=== PATIENT | female | born 1940 | race Caucasian/White ===

== ENCOUNTER 2016-05-30 | Outpatient (CLI) | payer MEDICARE, OTHER | END 2016-05-30 22:16 | disposition critical access hospital (66) | DX: L50.9 Urticaria, unspecified (principal) | CPT/HCPCS: A0425; A0429 ==

== ENCOUNTER 2016-05-30 22:43 | Emergency (ER) | payer MEDICARE, OTHER | END 2016-05-31 00:04 | disposition home or self-care (01) | DX: L27.2 Dermatitis due to ingested food (principal); T78.1XXA Other adverse food reactions, not elsewhere classified, initial encounter ==

== ENCOUNTER 2016-12-14 22:23 | Outpatient (CLI) | payer MEDICARE, OTHER | END 2016-12-14 22:24 | disposition EMS.NT | LOC: EMS 22:23 | PROVIDERS: ATTEND Surgery | DX: R51 Headache (principal); R11.0 Nausea; R68.89 Other general symptoms and signs ==

== ENCOUNTER 2017-03-18 13:30 | Outpatient (CLI) | payer MEDICARE, OTHER ==
--- NOTE | 2017-03-18 18:50 | XRAY Report ---
THREE VIEW THORACIC SPINE: 03/18/2017 CLINICAL INDICATION: Left-sided pain. AP, lateral, swimmer's views of the thoracic spine demonstrate mild degenerative disk disease. There is no evidence of compression fracture or subluxation. No paraspinal hematoma is present. IMPRESSION: MILD DEGENERATIVE CHANGES. JOB #: [id number] EXT JOB #:[id number]
== END 2017-03-18 13:31 | disposition home or self-care (01) ==
LOC: DI.S 13:30
PROVIDERS: ATTEND Nurse Practitioner Family
DX: M51.34 Other intervertebral disc degeneration, thoracic region (principal)
CPT/HCPCS: 72070

== ENCOUNTER 2017-04-29 11:18 | Outpatient (CLI) | payer MEDICARE, OTHER | END 2017-04-29 11:19 | disposition critical access hospital (66) | LOC: EMS 11:18 | PROVIDERS: ATTEND Surgery | DX: M25.562 Pain in left knee (principal) | CPT/HCPCS: A0425; A0429 ==

== ENCOUNTER 2017-04-29 11:51 | Emergency (ER) | payer MEDICARE, OTHER ==
[2017-04-29 12:13] VITALS: BP 151/95
--- NOTE | 2017-04-29 13:03 | XRAY Preliminary Report ---
Exam: XR KNEE 3 VIEW LT IMPRESSION: 1. No apparent fracture or bony malalignment. 2. Small joint effusion. 3. 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 [facility] SITE ID: [id number]
--- NOTE | 2017-04-29 13:03 | XRAY Report ---
EXAM: LEFT KNEE RADIOGRAPHY EXAM DATE: 04/29/2017 12:49 PM. CLINICAL HISTORY: Lateral left knee pain x1 day. Pain after fall. COMPARISON: None. TECHNIQUE: 3 views. FINDINGS: Bones: No apparent fracture or bone lesion. Joints: No subluxation. Small joint effusion. Mild marginal spurring of patellofemoral and medial randell nt compartments. Mild narrowing of the medial joint compartment. Soft Tissues: Possible mild swelling. IMPRESSION: 1. No apparent fracture or bony malalignment. 2. Small joint effusion. 3. 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 [facility] Referring Provider Line: [phone] SITE ID: [id number]
--- NOTE | 2017-04-29 14:01 | ED Physician Documentation ---
PD HPI LOWER EXT INJURY - Stated complaint Stated Complaint: FALL - Chief complaint Chief Complaint: Trauma Ext - History obtained from History obtained from: Patient - History of Present Illness PD HPI LOW EXT INJURY LOCATION: Left, Knee Type of injury: Twist (she twisted her knee and felt abrupt onset of pain anterolaterally and then knee gave out, causing her to fall. Unable to bear weight. Pain with ROM of the knee, mostly trying extension. No effusion as yet.) Where injury occurred: Home Timing - onset: Today Timing - details: Abrupt onset (had had some pains with ROM and prior problems with meniscus (with subsequent removal of meniscus in the past).) Improved by: Rest Worsened by: Moving, Other (attempting weight bearing) Associated symptoms: No: Weakness, Numbness, Swelling Contributing factors: Prior ortho surgery (meniscal surgery in the past). No: Anticoagulated Similar symptoms before: Has not had sx before Recently seen: Not recently seen Review of Systems Constitutional: denies: Fever, Chills Skin: denies: Rash, Lesions Neurologic: denies: Focal weakness, Numbness PD PAST MEDICAL HISTORY - Past Medical History Cardiovascular: Other Endocrine/Autoimmune: None - Past Surgical History Past Surgical History: Yes Ortho: Knee replacement, Arthroscopic surgery, Other Cardiovascular: Vascular surgery - Present Medications Home Medications: Ambulatory Orders Medication Instructions Recorded Confirmed Loratadine/Pseudoephedrine tab PO DAILY 04/29/17 [Claritin-D 12 Hour Tablet] Tramadol HCl 50 mg PO Q6H PRN #20 tablet 04/29/17 - Allergies Allergies/Adverse Reactions: Allergies Allergy/AdvReac Type Severity Reaction Status Date / Time latex Allergy Unknown Verified 04/29/17 13:11 Sulfa (Sulfonamide Allergy Anaphylaxis Verified 04/29/17 13:11 Antibiotics) - Social History Does the pt smoke?: No Smoking Status: Never smoker Does the pt drink ETOH?: No Does the pt have substance abuse?: No - Immunizations Immunizations are current?: Yes - POLST Patient has POLST: No PD ED PE NORMAL - Vitals Vital signs reviewed: Yes - General General: Alert and oriented X 3, Well developed/nourished, Other (appears in pain with any ROM of the left knee. ) - Derm Derm: Normal color, Warm and dry, No rash - Extremities Extremities: No edema, No calf tenderness / cord, Other (left knee with tenderness anterolaterally at proximal tibia. No effusion. Pain with LCL stress but also with passive and atttempted active extension of the knee. Slightly softer feeling of patellar tendon just above the patella. ). No: Normal ROM s pain - Neuro Neuro: Alert and oriented X 3, No motor deficit, No sensory deficit, Normal speech Results - Vitals Vitals: Oxygen O2 Source Room air - Rads (name of study) left knee Radiology: Prelim report reviewed (arthritic changes; no fractures. ), EMP read contemporaneously PD MEDICAL DECISION MAKING - ED course Complexity details: reviewed results, considered differential (seems either LCL strain or more likely partial patellar tendon tear, with pain on extension, tender lateral tibial prominence. ), d/w patient Departure - Departure Disposition: 01 Home, Self Care Clinical Impression: Knee internal derangement Qualifiers: Laterality: left Qualified Code(s): M23.92 - Unspecified internal derangement of left knee Condition: Stable Record reviewed to determine appropriate education?: Yes Instructions: ED Sprain Knee Prescriptions: Tramadol HCl 50 mg PO Q6H PRN #20 tablet PRN Reason: Pain Comments: Use a knee brace to stabilize the knee and provide comfort. You can change the angle of it as desired. Use crutches as needed for weight off of the knee and leg. Use some anti-inflammatories such as ibuprofen or naproxen 2-3 times daily over the next week. Call your orthopedist later today to set up an appointment for next week to have it reassessed and see if they feel any other treatment or advanced imaging is indicated. Otherwise assumedly will be using the knee brace for 3-4 weeks if it is a ligament or partial muscle tear. Discharge Date/Time: 04/29/17 16:02
== END 2017-04-29 16:02 | disposition home or self-care (01) ==
LOC: EDUNIT# → ED 11:51
DX: M23.92 Unspecified internal derangement of left knee (principal); Z96.659 Presence of unspecified artificial knee joint
CPT/HCPCS: 99283; 99284

== ENCOUNTER 2018-01-10 16:32 | Outpatient (CLI) | payer MEDICARE, OTHER ==
[2018-01-10 17:08] LABS: BILIRUBIN,URINE NEGATIVE (NEGATIVE); GLUCOSE, URINE (UA) NEGATIVE (NEGATIVE); KETONES,URINE (UA) NEGATIVE (NEGATIVE); LEUKOCYTE ESTERASE, URINE LARGE (NEGATIVE); NITRITE,URINE NEGATIVE (NEGATIVE); OCCULT BLOOD,URINE TRACE-INTA (NEGATIVE); PROTEIN,URINE NEGATIVE (NEGATIVE); UROBILINOGEN,URINE 0.2 (NORMAL) E.U./dL (NORMAL)
[2018-01-10 17:11] LABS: CLARITY,URINE HAZY (CLEAR)
[2018-01-10 17:15] LABS: BACTERIA,URINE Few /HPF (None Seen); SQUAMOUS EPITHELIAL CELL,UR RARE Squamous (<= Few); WBC CLUMPS,URINE PRESENT
== END 2018-01-10 16:33 | disposition home or self-care (01) ==
LOC: LAB 16:32
PROVIDERS: ATTEND Internal Medicine
DX: N39.0 Urinary tract infection, site not specified (principal)
CPT/HCPCS: 81001; 81003; 87086

== ENCOUNTER 2018-09-16 12:43 | Emergency (ER) | payer MEDICARE, OTHER ==
[2018-09-16 13:00] VITALS: BP 161/83
--- NOTE | 2018-09-16 13:02 | ED Physician Documentation ---
PD HPI FEMALE - Stated complaint Stated Complaint: FEMALE - Chief complaint Chief Complaint: UTI - History obtained from History obtained from: Patient - History of Present Illness Timing - onset: Yesterday Timing - details: Abrupt onset Associated symptoms: Dysuria, Urinary frequency. No: Fever, Abdominal pain, Back pain, Hematuria Recently seen: Not recently seen - Additional information Additional information: This is a 78-year-old woman who has a history of irritable bowel syndrome and occasionally has little stool incontinence and then will develop a bladder infection. Yesterday morning or the evening before she started to get a little bit of symptoms she is having burning and urgency and a worsening of her chronic urinary incontinence she drank a lot of water yesterday and things were little bit better when she went to bed last night but they woke up this morning and they were back with a vengeance. She is not on prophylactic antibiotics. She uses Vagifem and that does seem to help Decrease her recurrences. She denies back pain, nausea or vomiting, fever. She did take 2 ibuprofen for the discomfort. Her primary care providers in [place]. Review of Systems Constitutional: denies: Fever GI: denies: Abdominal Pain, Nausea, Vomiting : reports: Dysuria, Frequency, Incontinent, Other (Urgency). denies: Hematuria Musculoskeletal: denies: Back pain PD PAST MEDICAL HISTORY - Past Medical History Cardiovascular: Other Endocrine/Autoimmune: None - Past Surgical History Past Surgical History: Yes Ortho: Knee replacement, Arthroscopic surgery, Other Cardiovascular: Vascular surgery - Present Medications Home Medications: Ambulatory Orders Medication Instructions Recorded Confirmed Cephalexin [Keflex] 500 mg PO Q6H #28 capsule 09/16/18 - Allergies Allergies/Adverse Reactions: Allergies Allergy/AdvReac Type Severity Reaction Status Date / Time crab Allergy Anaphylaxis Verified 09/16/18 13:19 latex Allergy Unknown Verified 09/16/18 13:00 nettle Allergy Anaphylaxis Verified 09/16/18 13:19 Sulfa (Sulfonamide Allergy Anaphylaxis Verified 09/16/18 13:00 Antibiotics) - Social History Does the pt smoke?: No Smoking Status: Never smoker Does the pt drink ETOH?: No Does the pt have substance abuse?: No - Immunizations Immunizations are current?: Yes - POLST Patient has POLST: No PD ED PE NORMAL - Vitals Vital signs reviewed: Yes - General General: Alert and oriented X 3, No acute distress, Well developed/nourished - HEENT HEENT: Atraumatic - Cardiac Cardiac: RRR, No murmur - Respiratory Respiratory: No respiratory distress - Abdomen Abdomen: Normal bowel sounds, Soft - Back Back: No CVA TTP - Derm Derm: Normal color, Warm and dry - Neuro Neuro: Alert and oriented X 3 Results - Vitals Vitals: Vital Signs - 24 hr 09/16/18 12:58 Temperature 36.0 C L Heart Rate 79 Respiratory 14 Rate Blood Pressure 161/83 H O2 Saturation 96 Oxygen O2 Source Room air - Labs Labs: Laboratory Tests 09/16/18 12:05 Urine Color LIGHT YELLOW Urine Clarity HAZY Urine pH 5.5 Ur Specific Jacob 1.010 Urine Protein NEGATIVE Urine Glucose (UA) NEGATIVE Urine Ketones NEGATIVE Urine Occult Blood SMALL H Urine Nitrite NEGATIVE Urine Bilirubin NEGATIVE Urine Urobilinogen 0.2 (NORMAL) Ur Leukocyte Esterase MODERATE H Urine RBC 0-5 Urine WBC >25 H Ur Squamous Epith Cells FEW Squamous Urine Bacteria Few Ur Microscopic Review INDICATED Urine Culture Comments INDICATED PD MEDICAL DECISION MAKING - ED course Complexity details: reviewed results, d/w patient ED course: Patient does have a urinary tract infection with greater than 25 white blood cells per high-power field. Culture has been obtained. Patient says her typical infection is E. coli and response to Keflex so she will be placed on Keflex. We discussed using probiotics while she is on the antibiotic and for at least 2 weeks after. Follow with the primary care provider to retest the urine after finishing the antibiotics to make sure that the infection has been eradicated. Departure - Departure Disposition: 01 Home, Self Care Clinical Impression: Urinary tract infection Qualifiers: Urinary tract infection type: site unspecified Hematuria presence: without hematuria Qualified Code(s): N39.0 - Urinary tract infection, site not specified Condition: Good Instructions: ED UTI Cystitis Female Follow-Up: Zonia Roy MD [Primary Care Provider] - (after finish antibiotic to recheck urine) Prescriptions: Cephalexin [Keflex] 500 mg PO Q6H #28 capsule Comments: Take the Keflex 4 times a day as prescribed. Make sure that you are drinking lots of water. I would take probiotics while you are on the antibiotic and for at least 2 weeks afterwards. Some good sources would include, Blucher or water Miguel [place] since you are allergic to dairy. In addition recommendations for probiotic capsules: [facility] [employer] [facility] [employer]. B. infantis is a good strain of bacteria to look for in a probiotic. If unable to find these, then a probiotic capsule that has 4 or 5 different strains and it would be preferred.Follow-up with your primary care provider to have the urine retested after finishing the antibiotic to make sure the infection has been eradicated. If you are not seeing improvement in 48 hours he should recheck or return if you have increasing symptoms, back pain, fever or vomiting and cannot keep anything down.
[2018-09-16 13:16] LABS: BILIRUBIN,URINE NEGATIVE (NEGATIVE); CLARITY,URINE HAZY (CLEAR); GLUCOSE, URINE (UA) NEGATIVE (NEGATIVE); KETONES,URINE (UA) NEGATIVE (NEGATIVE); LEUKOCYTE ESTERASE, URINE MODERATE (NEGATIVE); NITRITE,URINE NEGATIVE (NEGATIVE); OCCULT BLOOD,URINE SMALL (NEGATIVE); PH,URINE 5.5 PH (5.0-7.5); PROTEIN,URINE NEGATIVE (NEGATIVE); UROBILINOGEN,URINE 0.2 (NORMAL) E.U./dL (NORMAL)
[2018-09-16 13:24] LABS: BACTERIA,URINE Few /HPF (None Seen); RBC,URINE 0-5 /HPF (0-5); SQUAMOUS EPITHELIAL CELL,UR FEW Squamous (<= Few)
== END 2018-09-16 13:54 | disposition home or self-care (01) ==
LOC: ED 12:43
DX: N39.0 Urinary tract infection, site not specified (principal); K58.9 Irritable bowel syndrome, unspecified; R15.9 Full incontinence of feces; R32 Unspecified urinary incontinence; Z96.659 Presence of unspecified artificial knee joint
CPT/HCPCS: 81001; 81003; 87086; 99283

== ENCOUNTER 2019-01-02 15:33 | Outpatient (CLI) | payer MEDICARE, OTHER ==
--- NOTE | 2019-01-02 20:00 | Ultrasound Report ---
Reason: PAIN IN LEFT LOWER LIMB Procedure Date: 01/02/2019 Accession Number: [id number] / [id number] Procedure: US - Duplex Ext Veins Left CPT Code: FULL RESULT: EXAM: LEFT LOWER EXTREMITY VENOUS ULTRASOUND. EXAM DATE: 01/02/2019 04:20 PM. CLINICAL HISTORY: Pain in left lower limb. COMPARISON: None. TECHNIQUE: Real-time sonographic vascular imaging was performed by the internet application developer through the lower extremity utilizing both color-flow and Doppler spectral analysis. Multiple labor representative static images were saved for review. FINDINGS: Common Femoral Vein (CFV): Normal. CFV-GSV Junction: Normal. Profunda Femoral Vein (PFV): Normal. Femoral Vein (FV) Prox: Normal. Femoral Vein (FV) Mid: Normal. Femoral Vein (FV) Dist: Normal. Popliteal Vein: Normal. Posterior Tibial Veins: Normal. Peroneal Veins: Normal. Contralateral Side CFV: Normal. Other: None. IMPRESSION: No evidence for deep venous thrombosis. [facility]
== END 2019-01-02 15:34 | disposition home or self-care (01) ==
LOC: DI 15:33
PROVIDERS: ATTEND Nurse Practitioner Family
DX: M79.605 Pain in left leg (principal)

== ENCOUNTER 2019-01-30 15:15 | Outpatient (CLI) | payer MEDICARE, OTHER ==
--- NOTE | 2019-01-30 15:52 | XRAY Report ---
Reason: JAW PAIN Procedure Date: 01/30/2019 Accession Number: [id number] / [id number] Procedure: XR - Mandible Bilat CPT Code: FULL RESULT: EXAM: MANDIBLE RADIOGRAPHY EXAM DATE: 01/30/2019 03:40 PM. HISTORY: Jaw pain. COMPARISONS: None. TECHNIQUE: 4 views. FINDINGS: Bones: The bones are qualitatively osteopenic; this limits evaluation for underlying fractures or masses. No definite fracture is identified in this setting. Temporomandibular Joints: Normal. The temporomandibular joints are normally located and symmetric. Sinuses: Normal. No opacities or fluid levels. Other: Degenerative changes of the cervical spine are noted. IMPRESSION: Osteopenia with no definite fracture identified. [facility]
== END 2019-01-30 15:16 | disposition home or self-care (01) ==
LOC: DI 15:15
PROVIDERS: ATTEND Nurse Practitioner Family
DX: M85.88 Other specified disorders of bone density and structure, other site (principal); R68.84 Jaw pain
CPT/HCPCS: 70110

== ENCOUNTER 2019-03-25 01:40 | Outpatient (CLI) | payer MEDICARE, OTHER | END 2019-03-25 01:41 | disposition critical access hospital (66) | LOC: EMS 01:40 | PROVIDERS: ATTEND Surgery | DX: R10.9 Unspecified abdominal pain (principal) | CPT/HCPCS: A0425; A0429 ==

== ENCOUNTER 2019-03-25 02:11 | Emergency (ER) | payer MEDICARE, OTHER ==
[2019-03-25 02:32] LABS: BASOPHILS % (AUTO) 0.2 %; EOSINOPHILS # (AUTO) 0.1 10^3/uL (0.0-0.7); EOSINOPHILS % (AUTO) 2.3 %; HGB - HEMOGLOBIN 14.9 g/dL (12.0-16.0); LYMPHOCYTES # (AUTO) 0.5 10^3/uL (1.5-3.5); LYMPHOCYTES % (AUTO) 9.5 %; MEAN CORPUSCULAR HEMOGLOBIN 28.8 pg (27.0-31.0); MEAN CORPUSCULAR HGB CONC 33.4 g/dL (32.0-36.0); MEAN CORPUSCULAR VOLUME 86.3 fL (81.0-99.0); MONOCYTES # (AUTO) 0.6 10^3/uL (0.0-1.0); MONOCYTES % (AUTO) 10.6 %; NEUTROPHILS # (AUTO) 4.3 10^3/uL (1.5-6.6); PLT - PLATELET COUNT 170 10^3/uL (130-450); RED BLOOD COUNT 5.17 10^6/uL (4.20-5.40); RED CELL DISTRIBUTION WIDTH 13.2 % (12.0-15.0); WHITE BLOOD COUNT 5.6 x10^3/uL (4.8-10.8)
[2019-03-25 02:47] LABS: ALBUMIN 4.3 g/dL (3.2-5.5); ALBUMIN/GLOBULIN RATIO 1.3 (1.0-2.2); BILIRUBIN,TOTAL 3.2 mg/dL (0.2-1.0); CALCIUM 9.5 mg/dL (8.5-10.3); CREATININE 0.8 mg/dL (0.4-1.0); TOTAL PROTEIN 7.5 g/dL (6.7-8.2)
--- NOTE | 2019-03-25 03:44 | ED Physician Documentation ---
PD HPI ABD PAIN - Stated complaint Stated Complaint: ABD PAIN - Chief complaint Chief Complaint: Abd Pain - History obtained from History obtained from: Patient - History of Present Illness Timing - onset: Yesterday Timing - details: Abrupt onset, Intermittant, Waxing and waning Quality: Pain Location: Epigastric Radiation: Other (no radiation) Improved by: Other (no ameliorating factors) Worsened by: Eating Associated symptoms: Nausea. No: Fever, Vomiting, Diarrhea, Constipation Similar symptoms before: Has not had sx before Recently seen: Not recently seen Review of Systems Constitutional: reports: Reviewed and negative Eyes: reports: Reviewed and negative Ears: reports: Reviewed and negative Nose: reports: Reviewed and negative Throat: reports: Reviewed and negative Cardiac: reports: Reviewed and negative Respiratory: reports: Reviewed and negative GI: reports: Abdominal Pain, Nausea. denies: Vomiting, Constipation, Diarrhea : denies: Dysuria, Frequency Skin: reports: Reviewed and negative Musculoskeletal: reports: Reviewed and negative Neurologic: reports: Reviewed and negative PD PAST MEDICAL HISTORY - Past Medical History Past Medical History: No Cardiovascular: Other Endocrine/Autoimmune: None GI: Other Other Past Medical History: hx IBS - Past Surgical History Past Surgical History: Yes Ortho: Knee replacement, Arthroscopic surgery, Other Cardiovascular: Vascular surgery - Present Medications Home Medications: Ambulatory Orders Medication Instructions Recorded Confirmed No Known Home Medications 03/25/19 03/25/19 - Allergies Allergies/Adverse Reactions: Allergies Allergy/AdvReac Type Severity Reaction Status Date / Time crab Allergy Anaphylaxis Verified 09/16/18 13:19 latex Allergy Unknown Verified 09/16/18 13:00 nettle Allergy Anaphylaxis Verified 09/16/18 13:19 Sulfa (Sulfonamide Allergy Anaphylaxis Verified 09/16/18 13:00 Antibiotics) - Social History Does the pt smoke?: No Smoking Status: Never smoker Does the pt drink ETOH?: No Does the pt have substance abuse?: No - Immunizations Immunizations are current?: Yes - POLST Patient has POLST: No PD ED PE NORMAL - Vitals Vital signs reviewed: Yes - General General: Alert and oriented X 3, Well developed/nourished, Other (mild/moderate painful distress at times during H+P) - HEENT HEENT: Moist mucous membranes - Neck Neck: Supple, no meningeal sign - Cardiac Cardiac: RRR, No murmur - Respiratory Respiratory: No respiratory distress, Clear bilaterally - Abdomen Abdomen: Soft, Non distended, Other (TTP RUQ and epigastrium without rebound or guarding) - Back Back: No CVA TTP - Derm Derm: Normal color, Warm and dry, No rash - Extremities Extremities: No edema Results - Vitals Vitals: Vital Signs - 24 hr 03/25/19 03/25/19 03/25/19 02:14 02:19 04:19 Temperature 37.2 C Heart Rate 67 68 72 Respiratory 18 12 Rate Blood Pressure 149/85 H 133/82 H O2 Saturation 100 100 97 03/25/19 03/25/19 06:03 08:39 Temperature 37.4 C Heart Rate 66 56 L Respiratory 16 18 Rate Blood Pressure 141/88 H 121/77 O2 Saturation 99 97 Oxygen O2 Source Room air - EKG (time done) No standard instances Rate: Rate (enter#) (71) Rhythm: NSR [place]: Normal Intervals: Normal [place] QRS: Normal Ischemia: Normal ST segments, Q waves (V1, V2) - Labs Labs: Laboratory Tests 03/25/19 03/25/19 02:25 02:25 WBC 5.6 RBC 5.17 Hgb 14.9 Hct 44.6 MCV 86.3 MCH 28.8 MCHC 33.4 RDW 13.2 Plt Count 170 MPV 11.0 H Neut # (Auto) 4.3 Lymph # (Auto) 0.5 L Stokes # (Auto) 0.6 Eos # (Auto) 0.1 Baso # (Auto) 0.0 Absolute Nucleated RBC 0.00 Nucleated RBC % 0.0 Sodium 139 Potassium 3.4 L Chloride 101 Carbon Dioxide 25 Anion Gap 13.0 BUN 13 Creatinine 0.8 Estimated GFR (MDRD) 70 L Glucose 161 H Calcium 9.5 Total Bilirubin 3.2 H AST 716 H ALT 559 H Alkaline Phosphatase 123 H Total Protein 7.5 Albumin 4.3 Globulin 3.2 Albumin/Globulin Ratio 1.3 Lipase 29 - Rads (name of study) CT A/P Radiology: Prelim report reviewed, See rad report RUQ US Radiology: Prelim report reviewed, See rad report PD MEDICAL DECISION MAKING - ED course Complexity details: reviewed results, re-evaluated patient, considered differential, d/w patient ED course: patient reported improvement in symptoms after IV zofran and morphine. After blood tests and CT resulted, I contacted Dr. Alexandre (surgery reservations manager at [facility]). He recommends transfer to facility capable of performing ERCP. US results pending at that time. [facility], [facility], [facility]. were contacted and no beds available at these facilities. [facility] beds available. I discussed the case with Dr. Purvis who accepts transfer. US subsequently completed and findings are concerning for cholecystitis as well as distal choledocholithiasis Departure - Departure Disposition: 02 Transfer Acute Care Hosp Clinical Impression: Abnormal liver function tests, Gallstones, Choledocholithiasis with acute chol ecystitis Condition: Stable
[2019-03-25] MEDS ORDERED: ONDANSETRON 4 MG/2 ML VIAL IVP STA (04:04)
[2019-03-25] MEDS ORDERED: MORPHINE 2 MG/ML CARPUJECT IVP STA ×2 (04:04→09:33)
[2019-03-25] MEDS ORDERED: SODIUM CHLORIDE 0.9% 1,000 ML IV STA ×2 (04:04→08:40)
[2019-03-25] MEDS ORDERED: diphenhydrAMINE INJ 50 MG/ML VIAL IVP STA (04:30)
[2019-03-25] MEDS ORDERED: IOVERSOL 320 100 ML VIAL IVP ONE ×2 (04:31→05:08)
--- NOTE | 2019-03-25 05:21 | CT Report ---
Reason: abd. pain, abnl. LFTs Procedure Date: 03/25/2019 Accession Number: [id number] / [id number] Procedure: CT - Abdomen/Pelvis W CPT Code: Final Report FULL RESULT: EXAM: CT ABDOMEN AND PELVIS EXAM DATE: 03/25/2019 05:05 AM. CLINICAL HISTORY: Abdominal pain. Abnormal LFTs. COMPARISONS: None. TECHNIQUE: Routine helical CT imaging was performed through the abdomen and pelvis. IV contrast: 80 ML OPTIRAY 320. Enteric contrast: No. Reconstructions: Coronal and sagittal. In accordance with CT protocol optimization, one or more of the following dose reduction techniques were utilized for this exam: automated exposure control, adjustment of mA and/or KV based on patient size, or use of iterative reconstructive technique. FINDINGS: Lung Bases: Unremarkable. Liver: Liver is mild enlarged with right hepatic lobe measuring 20.6 cm in craniocaudal dimension. Hypodense liver compatible with fatty infiltration with focal fatty sparing adjacent to gallbladder fossa. Gallbladder/Bile Ducts: Minimal gallbladder wall thickening, irregularity and enhancement. No evidence of gallstones. Mild dilation of CBD measuring up to 9 mm. Spleen: Normal. Pancreas: Normal. Adrenal Glands: Normal. Kidneys: Normal. No masses or hydronephrosis. Peritoneal Cavity/Bowel: Duodenal diverticula noted. Underdistention of transverse colon to rectum with prominence of wall. Colonic diverticula without focal inflammation to suggest acute diverticulitis. No bowel obstruction. The appendix is well visualized and normal. No free fluid, free air or lymphadenopathy. Pelvic Organs: Normal. The bladder and visualized pelvic organs are within normal limits. Vasculature: No aneurysms or other significant abnormality. Bones: No significant abnormality. Other: None. IMPRESSION: 1. Minimal gallbladder wall thickening/irregularity and biliary dilation. No radiopaque calculi evident. Recommend right upper quadrant ultrasound to further assess. 2. Mildly enlarged fatty liver with areas of fatty sparing adjacent to gallbladder. 3. Colonic diverticula without acute diverticulitis. 4. Mild prominence of colonic wall from transverse colon to rectum which may be related to underdistention or mild colitis. Correlate clinically. [facility]
[2019-03-25 08:41] VITALS: BP 121/77
--- NOTE | 2019-03-25 08:50 | Ultrasound Report ---
Reason: abd. pain, abnormal LFTs Procedure Date: 03/25/2019 Accession Number: [id number] / [id number] Procedure: US - Abdomen Limited CPT Code: Addended Final Report FULL RESULT: EXAM: ABDOMEN ULTRASOUND LIMITED, RUQ EXAM DATE: 03/25/2019 08:00 AM. CLINICAL HISTORY: Abdominal pain, elevated LFTs. COMPARISON: CT of the abdomen and pelvis from 03/25/2019. TECHNIQUE: Real-time scanning was performed with static images obtained. FINDINGS: Liver: Diffusely increased in echogenicity. Right hepatic lobe measures 20.1 cm longitudinally, which is enlarged. No focal lesions are demonstrated. Main portal vein flow: Hepatopetal. Gallbladder: Multiple gallstones and sludge are demonstrated. Gallbladder wall is moderately thickened at 5 mm. Small amount pericholecystic fluid present. Could not assess for sonographic Byrd sign as the patient is reportedly on pain medication. Biliary System: CBD measures 9 mm. No intrahepatic biliary ductal dilation is demonstrated. However, on left lateral decubitus image, there appeared to be echogenic foci in the distal common bile duct, measuring up to 4 mm (images [id number]). This is suspicious for choledocholithiasis. Other: None. IMPRESSION: 1. Cholelithiasis and gallbladder sludge with moderately thickened gallbladder wall and small amount of pericholecystic fluid. Could not assess for sonographic Byrd sign as the patient is reportedly on pain medication. However, findings raise suspicion for acute cholecystitis. If clinically indicated, HIDA scan could be considered for confirmation. 2. Dilation of the common bile duct with findings suspicious for distal choledocholithiasis. 3. Mildly enlarged and echogenic liver, compatible with hepatic steatosis seen on previous CT. IDA The call report notification system was initiated by Dr. Sunil Guerrero at 08:43 AM on 03/25/2019. ADDENDUM: 03/25/19 08:48 The above call report findings were discussed with Dr. Max Sanders by Dr. Sunil Guerrero at 08:48 AM on 03/25/2019.
[2019-03-27 11:46] LABS: HEPATITIS A IGM NON-REACTIVE (NON-REACTIVE); HEPATITIS B SURFACE ANTIGEN NON-REACTIVE (NON-REACTIVE); HEPATITIS C ANTIBODY NON-REACTIVE (NON-REACTIVE)
== END 2019-03-25 09:45 | disposition short-term general hospital (02) ==
LOC: EDUNIT# → ED 02:11
DX: K80.62 Calculus of gallbladder and bile duct with acute cholecystitis without obstruction (principal); R74.8 Abnormal levels of other serum enzymes
CPT/HCPCS: 36415; 74177; 76705; 80053; 80074; 83690; 85025; 86705; 86709; 86803; 87340; 93005; 96361; 96374; 96375; 96376; 99284; J1200; Q9967

== ENCOUNTER 2019-03-25 09:47 | Outpatient (CLI) | payer MEDICARE, OTHER | END 2019-03-25 09:48 | disposition short-term general hospital (02) | LOC: EMS 09:47 | PROVIDERS: ATTEND Surgery | DX: R10.9 Unspecified abdominal pain (principal); K80.20 Calculus of gallbladder without cholecystitis without obstruction; R94.5 Abnormal results of liver function studies | CPT/HCPCS: A0425; A0426 ==

== ENCOUNTER 2019-04-05 13:23 | Outpatient (CLI) | payer MEDICARE, OTHER ==
[2019-04-05 13:42] LABS: BASOPHILS % (AUTO) 0.4 %; EOSINOPHILS # (AUTO) 0.1 10^3/uL (0.0-0.7); EOSINOPHILS % (AUTO) 1.4 %; HGB - HEMOGLOBIN 14.1 g/dL (12.0-16.0); LYMPHOCYTES # (AUTO) 1.5 10^3/uL (1.5-3.5); LYMPHOCYTES % (AUTO) 21.2 %; MEAN CORPUSCULAR HEMOGLOBIN 29.3 pg (27.0-31.0); MEAN CORPUSCULAR HGB CONC 32.5 g/dL (32.0-36.0); MEAN CORPUSCULAR VOLUME 90.2 fL (81.0-99.0); MEAN PLATELET VOLUME 9.3 fL (7.9-10.8); MONOCYTES # (AUTO) 0.8 10^3/uL (0.0-1.0); NEUTROPHILS # (AUTO) 4.6 10^3/uL (1.5-6.6); NEUTROPHILS % (AUTO) 64.7 %; PLT - PLATELET COUNT 343 10^3/uL (130-450); RED BLOOD COUNT 4.81 10^6/uL (4.20-5.40); RED CELL DISTRIBUTION WIDTH 13.4 % (12.0-15.0); WHITE BLOOD COUNT 7.1 x10^3/uL (4.8-10.8)
[2019-04-05 13:59] LABS: ALBUMIN 3.7 g/dL (3.2-5.5); ALBUMIN/GLOBULIN RATIO 0.9 (1.0-2.2); BILIRUBIN,TOTAL 0.5 mg/dL (0.2-1.0); CALCIUM 9.2 mg/dL (8.5-10.3); CREATININE 0.8 mg/dL (0.4-1.0); TOTAL PROTEIN 7.7 g/dL (6.7-8.2)
== END 2019-04-05 13:24 | disposition home or self-care (01) ==
LOC: LAB 13:23
PROVIDERS: ATTEND Internal Medicine
DX: K80.21 Calculus of gallbladder without cholecystitis with obstruction (principal)
CPT/HCPCS: 36415; 80053; 85025

== ENCOUNTER 2020-02-27 16:23 | Outpatient (CLI) | payer MEDICARE, OTHER ==
[2020-02-27 16:57] LABS: BILIRUBIN,URINE NEGATIVE (NEGATIVE); GLUCOSE, URINE (UA) NEGATIVE (NEGATIVE); KETONES,URINE (UA) NEGATIVE (NEGATIVE); LEUKOCYTE ESTERASE, URINE SMALL (NEGATIVE); NITRITE,URINE NEGATIVE (NEGATIVE); OCCULT BLOOD,URINE NEGATIVE (NEGATIVE); PH,URINE 5.5 PH (5.0-7.5); PROTEIN,URINE NEGATIVE (NEGATIVE); UROBILINOGEN,URINE 0.2 (NORMAL) E.U./dL (NORMAL)
[2020-02-27 17:19] LABS: CLARITY,URINE CLEAR (CLEAR); RBC,URINE 0-5 /HPF (0-5); SQUAMOUS EPITHELIAL CELL,UR FEW Squamous (<= Few); WBC CLUMPS,URINE PRESENT
[2020-02-27 17:20] LABS: BACTERIA,URINE Few /HPF (None Seen)
== END 2020-02-27 16:24 | disposition home or self-care (01) ==
LOC: LAB 16:23
PROVIDERS: ATTEND Internal Medicine
DX: R30.0 Dysuria (principal)
CPT/HCPCS: 81001; 87077; 87086; 87181

== ENCOUNTER 2020-07-04 17:03 | Outpatient (CLI) | payer MEDICARE, OTHER ==
[2020-07-04 17:25] LABS: BILIRUBIN,URINE NEGATIVE (NEGATIVE); GLUCOSE, URINE (UA) NEGATIVE (NEGATIVE); KETONES,URINE (UA) NEGATIVE (NEGATIVE); LEUKOCYTE ESTERASE, URINE SMALL (NEGATIVE); NITRITE,URINE NEGATIVE (NEGATIVE); OCCULT BLOOD,URINE NEGATIVE (NEGATIVE); PH,URINE 5.5 PH (5.0-7.5); PROTEIN,URINE NEGATIVE (NEGATIVE); UROBILINOGEN,URINE 0.2 (NORMAL) E.U./dL (NORMAL)
[2020-07-04 17:31] LABS: BACTERIA,URINE Rare /HPF (None Seen); CLARITY,URINE SL. CLOUDY (CLEAR); RBC,URINE 0-5 /HPF (0-5); SQUAMOUS EPITHELIAL CELL,UR RARE Squamous (<= Few); WBC,URINE >25 /HPF (0-5)
== END 2020-07-04 17:04 | disposition home or self-care (01) ==
LOC: LAB 17:03
PROVIDERS: ATTEND Internal Medicine
DX: R30.0 Dysuria (principal)
CPT/HCPCS: 81001; 87086

== ENCOUNTER 2020-08-21 08:50 | Day surgery (SDC) | payer MEDICARE, OTHER ==
[2020-08-21] MEDS ORDERED: LACTATED RINGERS 1,000 ML IV ONE ×2 (09:05→11:39)
[2020-08-21] MEDS ORDERED: MIDAZOLAM 2 MG/2 ML VIAL ONE (11:11)
[2020-08-21] MEDS ORDERED: fentaNYL 250 MCG/5 ML VIAL ONE (11:11)
[2020-08-21] MEDS ORDERED: LIDOCAINE OINTMENT 5% 35.44 GM TUBE ONE (11:26)
[2020-08-21] MEDS ORDERED: LIDOCAINE OINTMENT 5% 35.44 GM TUBE TOP ONE (11:34)
[2020-08-21 12:03] VITALS: BP 107/83
== END 2020-08-21 08:51 | disposition home or self-care (01) ==
LOC: SDS 08:50
PROVIDERS: ATTEND Surgery
DX: Z12.11 Encounter for screening for malignant neoplasm of colon (principal); K57.30 Diverticulosis of large intestine without perforation or abscess without bleeding; K64.8 Other hemorrhoids; K64.4 Residual hemorrhoidal skin tags; Z86.010 Personal history of colon polyps; K58.2 Mixed irritable bowel syndrome
CPT/HCPCS: A9270; G0105; J3010; J7120

== ENCOUNTER 2020-09-08 16:21 | Outpatient (CLI) | payer MEDICARE, OTHER ==
--- NOTE | 2020-09-08 17:01 | XRAY Report ---
PROCEDURE: Hip w/Pelvis 2-3V LT INDICATIONS: L HIP PAIN TECHNIQUE: AP pelvis with lateral view(s) of the bilateral hip(s). COMPARISON: None. FINDINGS: Bones: No fractures or dislocations. Pelvic ring appears intact. No suspicious bony lesions. Moder ate joint space narrowing and articular osteophyte formation at the bilateral hip joints. Soft tissues: The visualized bowel gas pattern is normal. No suspicious soft tissue calcifications. IMPRESSION: Bilateral hip osteoarthritis. No acute fracture. No osseous lesion. If symptoms and/or c linical suspicion for pathology continue, further assessment with repeat plain films, or advanced yusra ging (e.g., CT, MRI, or bone scan) is recommended for further assessment. Reviewed by: Rere Livingston MD on 09/08/2020 5:00 PM PDT Approved by: Rere Livingston MD on 09/08/2020 5:00 PM PDT Station ID: [id number]
--- NOTE | 2020-09-08 19:21 | XRAY Report ---
PROCEDURE: Lumbar Spine 2 View INDICATIONS: LBP TECHNIQUE: 2 views of the lumbar spine were acquired. COMPARISON: None. FINDINGS: Bones: 5 [id number] vertebrae are present. There is normal bony alignment. No vertebral body compression fractures. No suspicious bony lesions. Mild convex left thoracolumbar scoliosis present . Moderate disc space narrowing and hypertrophic facet joints noted at L4-5 and L5-S1. Surgical clips noted in the right upper quadrant. Moderate fecal debris present throughout the colon. No obstruction. IMPRESSION: Lower lumbar spine degenerative disc disease and arthropathy associated with thoracolumbar dextroscol iosis Moderate fecal debris throughout the colon Reviewed by: Abhi Spaulding MD on 09/08/2020 6:20 PM VALERY Approved by: Abhi Spaulding MD on 09/08/2020 6:20 PM VALERY Station ID: [id number]
== END 2020-09-08 16:22 | disposition home or self-care (01) ==
LOC: LAB 16:21
PROVIDERS: ATTEND Nurse Practitioner
DX: R15.2 Fecal urgency (principal); R10.9 Unspecified abdominal pain; R19.7 Diarrhea, unspecified; M47.816 Spondylosis without myelopathy or radiculopathy, lumbar region; M51.36 Other intervertebral disc degeneration, lumbar region; M48.061 Spinal stenosis, lumbar region without neurogenic claudication; M16.0 Bilateral primary osteoarthritis of hip
CPT/HCPCS: 81599; 87045; 87046; 87427

== ENCOUNTER 2020-09-16 15:55 | Outpatient (CLI) | payer MEDICARE, OTHER | END 2020-09-16 15:56 | disposition home or self-care (01) | LOC: RT 15:55 | DX: Z01.810 Encounter for preprocedural cardiovascular examination (principal); M19.071 Primary osteoarthritis, right ankle and foot; M21.621 Bunionette of right foot | CPT/HCPCS: 93005 ==

== ENCOUNTER 2020-11-26 16:40 | Outpatient (CLI) | payer MEDICARE, OTHER ==
[2020-11-26 16:54] LABS: BILIRUBIN,URINE NEGATIVE (NEGATIVE); GLUCOSE, URINE (UA) NEGATIVE (NEGATIVE); KETONES,URINE (UA) NEGATIVE (NEGATIVE); LEUKOCYTE ESTERASE, URINE MODERATE (NEGATIVE); NITRITE,URINE NEGATIVE (NEGATIVE); OCCULT BLOOD,URINE TRACE-LYSE (NEGATIVE); PH,URINE 5.5 PH (5.0-7.5); PROTEIN,URINE NEGATIVE (NEGATIVE); UROBILINOGEN,URINE 0.2 (NORMAL) E.U./dL (NORMAL)
[2020-11-26 16:56] LABS: CLARITY,URINE SL. CLOUDY (CLEAR)
[2020-11-26 17:00] LABS: BACTERIA,URINE Few /HPF (None Seen); MUCUS,URINE Few Strands; RBC,URINE 0-5 /HPF (0-5); SQUAMOUS EPITHELIAL CELL,UR FEW Squamous (<= Few); WBC,URINE >25 /HPF (0-5)
== END 2020-11-26 16:41 | disposition home or self-care (01) ==
LOC: LAB 16:40
PROVIDERS: ATTEND Internal Medicine
DX: R30.0 Dysuria (principal)
CPT/HCPCS: 81001; 87077; 87086; 87181

== ENCOUNTER 2021-09-09 08:00 | Outpatient (CLI) | payer MEDICARE, OTHER ==
[2021-09-09 20:15] LABS: BILIRUBIN,URINE NEGATIVE (NEGATIVE); GLUCOSE, URINE (UA) NEGATIVE (NEGATIVE); KETONES,URINE (UA) NEGATIVE (NEGATIVE); LEUKOCYTE ESTERASE, URINE SMALL (NEGATIVE); NITRITE,URINE NEGATIVE (NEGATIVE); OCCULT BLOOD,URINE NEGATIVE (NEGATIVE); PROTEIN,URINE NEGATIVE (NEGATIVE); UROBILINOGEN,URINE 0.2 (NORMAL) E.U./dL (NORMAL)
[2021-09-09 20:18] LABS: CLARITY,URINE CLEAR (CLEAR)
[2021-09-09 20:30] LABS: BACTERIA,URINE Few /HPF (None Seen); RBC,URINE 0-5 /HPF (0-5); SQUAMOUS EPITHELIAL CELL,UR FEW Squamous (<= Few)
== END 2021-09-09 23:59 | disposition home or self-care (01) ==
LOC: LAB.S 08:00
PROVIDERS: ATTEND Physician Assistant Medical
DX: N39.0 Urinary tract infection, site not specified (principal)
CPT/HCPCS: 81001; 87086; 87181

== ENCOUNTER 2022-02-13 08:00 | Outpatient (CLI) | payer MEDICARE, OTHER | END 2022-02-13 23:59 | disposition home or self-care (01) | LOC: LAB.S 08:00 | PROVIDERS: ATTEND Physician Assistant Medical | DX: R39.15 Urgency of urination (principal); R30.0 Dysuria | CPT/HCPCS: 87086 ==

== ENCOUNTER 2022-02-24 08:00 | Outpatient (CLI) | payer MEDICARE, OTHER ==
[2022-02-24 20:00] LABS: BILIRUBIN,URINE NEGATIVE (NEGATIVE); GLUCOSE, URINE (UA) NEGATIVE (NEGATIVE); KETONES,URINE (UA) NEGATIVE (NEGATIVE); LEUKOCYTE ESTERASE, URINE SMALL (NEGATIVE); NITRITE,URINE NEGATIVE (NEGATIVE); OCCULT BLOOD,URINE NEGATIVE (NEGATIVE); PROTEIN,URINE NEGATIVE (NEGATIVE); UROBILINOGEN,URINE 0.2 (NORMAL) E.U./dL (NORMAL)
[2022-02-24 20:01] LABS: CLARITY,URINE CLEAR (CLEAR)
[2022-02-24 20:16] LABS: RBC,URINE 0-5 /HPF (0-5); SQUAMOUS EPITHELIAL CELL,UR FEW Squamous (<= Few)
[2022-02-24 20:17] LABS: BACTERIA,URINE Rare /HPF (None Seen); EPITHELIAL CELLS,UR FEW Transitional /HPF (<= Few)
== END 2022-02-24 23:59 | disposition home or self-care (01) ==
LOC: LAB.S 08:00
PROVIDERS: ATTEND Internal Medicine
DX: R30.0 Dysuria (principal)
CPT/HCPCS: 81001; 87086

== ENCOUNTER 2022-03-29 15:00 | Emergency (ER) | payer MEDICARE, OTHER ==
[2022-03-29 15:32] VITALS: BP 132/75
--- NOTE | 2022-03-29 16:41 | XRAY Report ---
PROCEDURE: Hip w/Pelvis 2-3V RT INDICATIONS: fall, pain TECHNIQUE: AP pelvis with lateral view(s) of the right hip(s). COMPARISON: None. FINDINGS: Bones: Moderate bilateral hip joint osteoarthritic changes are seen. No evidence of avascular necros is of femoral head. No fractures or dislocations. Pelvic ring appears intact. No suspicious bony le sions. Soft tissues: The visualized bowel gas pattern is normal. No suspicious soft tissue calcifications. IMPRESSION: Moderate bilateral hip joint osteoarthritis. No acute pelvic or hip fracture. No evidence of avascular necrosis. Reviewed by: Leif Herring MD on 03/29/2022 4:39 PM PST Approved by: Leif Herring MD on 03/29/2022 4:39 PM PST Station ID: [id number]
== END 2022-03-29 17:58 | disposition left against medical advice (07) ==
LOC: ED 15:00
DX: M79.651 Pain in right thigh (principal); Z53.21 Procedure and treatment not carried out due to patient leaving prior to being seen by health care provider

== ENCOUNTER 2022-06-05 15:49 | Emergency (ER) | payer MEDICARE, OTHER ==
[2022-06-05] MEDS ORDERED: DEXAMETHASONE 10 MG/ML VIAL IM STA (16:31)
--- NOTE | 2022-06-05 16:36 | ED Physician Documentation ---
PD HPI BACK PAIN - Stated complaint Stated Complaint: BACK PX - Chief complaint Chief Complaint: Back Pain - History obtained from History obtained from: Patient - Additional information Additional information: 82-year-old woman with history of osteoarthritis but no osteoporosis/osteopenia. She has a long history of back issues and about 13 months ago had a steroid injection in her back which helped a lot. Yesterday she was putting on clothes, not bending over anything and developed low back pain around L3. He radiates a bit towards the tailbone but denies radiation to the hips or legs, weakness, numbness, tingling, saddle anesthesia, fevers, or incontinence, no unintended weight loss or history of cancer. PD PAST MEDICAL HISTORY - Past Medical History Past Medical History: Yes Cardiovascular: None Endocrine/Autoimmune: None GI: Other HEENT: Chronic vision loss, Other Musculoskeletal: None - Past Surgical History Past Surgical History: Yes General: Cholecystectomy Ortho: Knee replacement, Shoulder arthroplasty, Other /FOREX TRADER: Other Cardiovascular: Vascular surgery - Present Medications Home Medications: Ambulatory Orders Medication Instructions Recorded Confirmed EPINEPHrine [Epinephrine] 0.3 mg IJ ONCE PRN 08/21/20 06/05/22 predniSONE [Deltasone] 20 mg PO [id number] #21 tab 06/05/22 - Allergies Allergies/Adverse Reactions: Allergies Allergy/AdvReac Type Severity Reaction Status Date / Time bee venom protein (honey bee) Allergy Emesis Verified 06/05/22 16:10 crab Allergy Anaphylaxis Verified 06/05/22 16:10 latex Allergy Unknown Verified 06/05/22 16:10 nettle Allergy Anaphylaxis Verified 06/05/22 16:10 Sulfa (Sulfonamide Allergy Anaphylaxis Verified 06/05/22 16:10 Antibiotics) - Social History Does the pt smoke?: No Smoking Status: Never smoker Does the pt drink ETOH?: No Does the pt have substance abuse?: No - Immunizations Immunizations are current?: Yes - POLST Patient has POLST: No PD ED PE NORMAL - Vitals Vital signs reviewed: Yes - General General: Alert and oriented X 3, No acute distress - Abdomen Abdomen: Normal bowel sounds, Soft, Non tender - Back Back: Other (Tender to palpation around L3) - Extremities Extremities: Other (The patient has equal and normal Achilles and patellar reflexes bilaterally. Normal sensation in all areas of the legs. Patient denies saddle anesthesia. Normal strength in flexion-extension at the ankles, knees, and flexion of the hips.) - Neuro Neuro: Alert and oriented X 3, Normal speech Results - Vitals Vitals: Vital Signs - 24 hr 06/05/22 06/05/22 16:06 17:21 Temperature 37.1 C Heart Rate 70 74 Respiratory 16 16 Rate Blood Pressure 149/95 H 143/78 H O2 Saturation 97 98 Oxygen O2 Source Room air - Rads (name of study) Lumbar spine CT, see discharge instructions for read Radiology: Final report received, EMP read indepedently PD Medical Decision Making - ED course ED course: 82-year-old woman with exacerbation of chronic low back pain, no injury. Multiple findings on CT and discussed with patient. She has an important trip coming up next week and would like to go. We will trial some steroids in the interim. No sign of cauda equina. Nothing in history or physical to suggest epidural abscess or other infection. Red flags for imaging include advanced age. Departure - Departure Disposition: 01 Home, Self Care Clinical Impression: Back pain Condition: Good Record reviewed to determine appropriate education?: Yes Instructions: ED Neck Back Pain General Prescriptions: predniSONE [Deltasone] 20 mg PO [id number] #21 tab Comments: Reasonable to follow-up with a spine surgeon on return home from your trip. I do not see any reason you cannot go on your trip though. Return for new or worsening symptoms. T12-L1: Normal in appearance. L1-L2: No significant abnormality is seen. L2-L3: Mild loss of disc height is seen. Mild to moderate disc bulge can be seen. There is a mild left foraminal disc protrusion. There is mild to moderate left-sided and no right-sided neuroforaminal narrowing. Mild central canal narrowing is seen. L3-L4: The disc height is relatively well preserved. At least moderate disc bulge is seen. A superimposed central disc protrusion is seen. Moderate facet hypertrophy is seen. Mild to moderate bilateral neuroforaminal narrowing can be seen. At least moderate central canal narrowing is seen. L4-L5: The disc height is relatively well preserved. At least moderate disc bulge is seen at this level. A superimposed central disc protrusion is seen. Moderate facet hypertrophy is seen. Associated hypertrophy of the ligamentum flavum can be seen. At least moderate bilateral neuroforaminal narrowing can be seen. Moderate to severe central canal narrowing is seen. L5-S1: Moderate loss of disc height is seen, which is worse on the left than on the right. Bridging endplate osteophytes are seen on the left. Moderate facet hypertrophy is seen. There is mild right-sided and moderate left-sided neuroforaminal narrowing. Moderate central canal narrowing is seen. Soft tissues: No retroperitoneal masses or hematomas. Visualized aorta is normal in caliber. Diverticulosis can be seen, without flor findings of active diverticulitis. Discharge Date/Time: 06/05/22 17:30
--- NOTE | 2022-06-05 17:07 | CT Report ---
PROCEDURE: LUMBAR SPINE WO INDICATIONS: back inj TECHNIQUE: Noncontrast 3 mm thick sections acquired from the T12 level to the sacrum. Sagittal and coronal refo rmats were constructed. For radiation dose reduction, the following was used: automated exposure co ntrol, adjustment of mA and/or kV according to patient size. COMPARISON: Correlation is made with prior lumbar plain films, 08/09/2020 and prior abdomen and pelvi s CT, 04/04/2019 FINDINGS: Image quality: Excellent. Bones: No acute vertebral body compression fractures. No suspicious lytic or blastic bony lesions. Central spinal caliber is of normal overall caliber. No pars defects. Mild levoconvex scoliotic curvature is seen. No significant AP alignment abnormality can be seen. T12-L1: Normal in appearance. L1-L2: No significant abnormality is seen. L2-L3: Mild loss of disc height is seen. Mild to moderate disc bulge can be seen. There is a mild left foraminal disc protrusion. There is mild to moderate left-sided and no right-sided neuroforamina l narrowing. Mild central canal narrowing is seen. L3-L4: The disc height is relatively well preserved. At least moderate disc bulge is seen. A superi mposed central disc protrusion is seen. Moderate facet hypertrophy is seen. Mild to moderate bilate ral neuroforaminal narrowing can be seen. At least moderate central canal narrowing is seen. L4-L5: The disc height is relatively well preserved. At least moderate disc bulge is seen at this l evel. A superimposed central disc protrusion is seen. Moderate facet hypertrophy is seen. Associated hypertrophy of the ligamentum flavum can be seen. At least moderate bilateral neuroforaminal narro wing can be seen. Moderate to severe central canal narrowing is seen. L5-S1: Moderate loss of disc height is seen, which is worse on the left than on the right. Bridging endplate osteophytes are seen on the left. Moderate facet hypertrophy is seen. There is mild right- sided and moderate left-sided neuroforaminal narrowing. Moderate central canal narrowing is seen. Soft tissues: No retroperitoneal masses or hematomas. Visualized aorta is normal in caliber. Diver ticulosis can be seen, without flor findings of active diverticulitis. IMPRESSION: No acute fracture can be seen. Multiple levels of degenerative change are seen, which are worst inferiorly. Mild levoconvex scoliotic curvature is seen. If it would be helpful for clinical management decision making, please consider a dedicated, schedule d lumbar MRI for further evaluation (assuming that there is no contraindication). Additional findings: Diverticulosis, without findings of active diverticulitis. Reviewed by: Juan Saleem MD on 06/05/2022 4:[address] [facility] Approved by: Juan Saleem MD on 06/05/2022 4:[address] [facility] Station ID: [id number]
[2022-06-05 17:23] VITALS: BP 143/78
== END 2022-06-05 17:30 | disposition home or self-care (01) ==
LOC: ED 15:49
DX: M54.50 Low back pain, unspecified (principal); G89.29 Other chronic pain
CPT/HCPCS: 96372; 99283; 99284